=== PATIENT | female | born 2000 | race Hispanic/Latino ===

== ENCOUNTER 2023-11-30 11:07 | Outpatient (CLI) | payer OTHER | END 2023-11-30 11:08 | disposition home or self-care (01) | LOC: CSHULT 11:07 | PROVIDERS: ATTEND Family Medicine | DX: O09.892 Supervision of other high risk pregnancies, second trimester (principal); Z3A.23 23 weeks gestation of pregnancy | CPT/HCPCS: 76805 ==

== ENCOUNTER 2024-03-14 11:13 | Inpatient (IN) | payer MEDICAID, OTHER, SELFPAY ==
[2024-03-14] MEDS ORDERED: HYDROcodone/Acetaminophen 5/325 mg Tablet PO PRN ×2 (11:37→21:15)
[2024-03-14] MEDS ORDERED: fentaNYL 50 mcg/mL 1 mL Vial SLOW IVP PRN (11:37)
[2024-03-14] MEDS ORDERED: Methylergonovine 0.2 MG/ML VIAL IM PRN (11:37)
[2024-03-14] MEDS ORDERED: Carboprost 250 MCG/ML AMP IM PRN (11:37)
[2024-03-14] MEDS ORDERED: Diphenoxylate HCl/Atropine Tablet PO PRN (11:37)
[2024-03-14] MEDS ORDERED: Acetaminophen 500 MG TAB PO PRN (11:37)
[2024-03-14] MEDS ORDERED: Tranexamic Acid 1,000 MG/10 ML VIAL IVP PRN (11:37)
[2024-03-14] MEDS ORDERED: Ondansetron PF 4 MG/2 ML Vial IVP PRN ×2 (11:37→21:15)
[2024-03-14] MEDS ORDERED: Misoprostol 200 MCG TAB PR PRN (11:37)
[2024-03-14] MEDS ORDERED: Lidocaine 1% (PF) 30 ML VIAL SC PRN (11:37)
[2024-03-14] MEDS ORDERED: Promethazine HCl 25 MG/ML VIAL IM PRN ×2 (11:37→21:15)
[2024-03-14] MEDS ORDERED: Ibuprofen 800 MG TAB PO PRN (11:37)
[2024-03-14] MEDS ORDERED: hydrALAZINE 20 MG/ML VIAL SLOW IVP PRN ×2 (11:37→21:15)
[2024-03-14] MEDS ORDERED: Lactated Ringer's 1,000 ML IV SCH (11:45)
[2024-03-14] MEDS ORDERED: Oxytocin 30 units/NS 500 ML 500 ML IV SCH ×2 (11:45)
[2024-03-14 12:29] VITALS: BMI 44.9
[2024-03-14] MEDS: fentaNYL/Ropivacaine Epidural 100 ML ONE (13:06)
[2024-03-14 13:08] LABS: Hematocrit 36.8 % (34.9-44.5); Hemoglobin 12.3 g/dL (12.0-15.5); Mean Corpuscular HGB CONC 33.4 g/dL (32.0-36.0); Mean Corpuscular Hemoglobin 28.6 pg (27.0-33.0); Mean Corpuscular Volume 85.6 fL (81.6-98.3); Mean Platelet Volume 10.3 fL (7.4-10.4); Platelet Count 373 10x3/uL (150-450); RBC Distribution Width 13.2 % (11.5-14.5); White Blood Cell (WBC) Count 14.7 10x3/uL (3.5-10.5)
[2024-03-14 13:38] LABS: Syphilis Antibody Nonreactive (Nonreactive); Syphilis Antibody Index 0.08 S/CO (<1.00 Non-Reactive)
[2024-03-14 13:40] LABS: HBsAg Index 0.23 S/CO (0-0.99); Hep B Surf Ag - L&D Non-Reactive S/CO (NonReactive)
[2024-03-14] MEDS: Oxytocin 30 units/NS 500 ML 500 ML IV SCH (14:12)
[2024-03-14] MEDS ORDERED: Lanolin Ointment 7 GM TUBE TOP PRN (21:15)
[2024-03-14] MEDS ORDERED: diphenhydrAMINE 25 MG CAP PO PRN (21:15)
[2024-03-14] MEDS ORDERED: Milk Of Magnesia 30 ML UDCUP PO PRN (21:15)
[2024-03-14] MEDS ORDERED: Bisacodyl 10 MG SUPP PR PRN (21:15)
[2024-03-14] MEDS: Ibuprofen 800 MG TAB PO SCH (22:06)
[2024-03-14] MEDS: Docusate 100 MG CAP PO SCH (22:08)
[2024-03-15] MEDS: Boostrix 0.5 ML (Tdap) VIAL (>/=7 yrs of age) IM ONE (07:22)
[2024-03-15] MEDS: Docusate 100 MG CAP PO SCH (09:21)
[2024-03-15] MEDS: Prenatal Vitamin 1 TAB PO SCH (09:21)
[2024-03-15] MEDS: Ferrous Sulfate 325 MG TAB PO SCH (09:22)
[2024-03-15 16:33] VITALS: BP 118/59; TEMP 97.8
== END 2024-03-15 19:20 | disposition home or self-care (01) | DRG 807 ==
LOC: CSHLD 11:13 → CSHPP 20:30
PROVIDERS: ADMIT Family Medicine; ATTEND Family Medicine
PROC: 10E0XZZ Delivery of Products of Conception, External Approach (ICD-10-PCS; principal; 2024-03-14)
PROC: 10907ZC Drainage of Amniotic Fluid, Therapeutic from Products of Conception, Via Natural or Artificial Opening (ICD-10-PCS; 2024-03-14)
PROC: 3E0S3BZ Introduction of Anesthetic Agent into Epidural Space, Percutaneous Approach (ICD-10-PCS; 2024-03-14)
DX: O99.214 Obesity complicating childbirth (principal); Z37.0 Single live birth; Z3A.38 38 weeks gestation of pregnancy
CPT/HCPCS: 36415; 51702; 85027; 86780; 86850; 86900; 86901; 87340; J2590